=== PATIENT | female | born 1945 | race Hispanic/Latino ===

== ENCOUNTER 2017-10-15 09:22 | Outpatient (CLI) | payer MEDICARE, MEDICAID | END 2017-10-15 09:23 | disposition home or self-care (01) | LOC: BICMAMMO 09:22 | PROVIDERS: ATTEND Family Medicine | DX: Z13.820 Encounter for screening for osteoporosis (principal); M81.0 Age-related osteoporosis without current pathological fracture; M54.2 Cervicalgia; M47.892 Other spondylosis, cervical region; I51.7 Cardiomegaly | CPT/HCPCS: 71046; 72040; 77080 ==

== ENCOUNTER 2022-01-29 04:22 | Emergency (ER) | payer MEDICARE, MEDICAID ==
[2022-01-29] MEDS ORDERED: Ondansetron ODT 4 MG TAB ONE (04:36)
[2022-01-29 05:39] LABS: #Lymphocytes 1.4 thou/uL (1.20-3.40); #Monocytes 0.9 thou/uL (0.11-0.59); #Neutrophils 16.3 thou/uL (1.40-6.50); %Basophils 0.2 % (0.0-1.0); %Lymphocytes 7.5 % (21.0-51.0); %Monocytes 4.7 % (0.0-10.0); %Neutrophils 87.6 % (42.0-75.0); Hemoglobin 12.9 g/dL (12.0-16.0); Mean Corpuscular HGB CONC 33.7 g/dL (32.0-36.0); Mean Platelet Volume 8.2 fL (7.4-10.4); Platelet Count 186 10x3/uL (130-400); RBC Distribution Width 12.7 % (11.5-14.5); Red Blood Cell (RBC) Count 4.31 mill/uL (4.20-5.40); White Blood Cell (WBC) Count 18.6 10x3/uL (4.8-10.8)
[2022-01-29 05:56] LABS: ALT (SGPT) 11 U/L (8-55); AST (SGOT) 18 U/L (5-34); Albumin 4.1 g/dL (3.4-4.8); Alkaline Phosphatase 84 U/L (40-110); Anion Gap 13 mmol/L (10-20); BUN (Urea Nitrogen) 15 mg/dL (9.8-20.1); Calc. Creatinine Clearance 0 mL/min (70-130); Calcium 9.5 mg/dL (7.8-10.44); Carbon Dioxide 22 mmol/L (23-31); Chloride 104 mmol/L (98-107); Estimated GFR 61; Globulin 3.9 g/dL (2.4-3.5); Glucose 188 mg/dL (83-110); Lipase 10 U/L (8-78); Magnesium 1.4 mg/dL (1.6-2.6); Potassium 3.2 mmol/L (3.5-5.1); Sodium 136 mmol/L (136-145)
[2022-01-29] MEDS ORDERED: Magnesium Oxide 400 MG TAB PO SCH (08:00)
[2022-01-29] MEDS ORDERED: Potassium Chloride 20 MEQ TAB ONE (08:40)
== END 2022-01-29 09:19 | disposition home or self-care (01) ==
LOC: ERS 04:22
DX: J18.9 Pneumonia, unspecified organism (principal); I10 Essential (primary) hypertension
CPT/HCPCS: 36415; 71045; 74177; 80053; 83690; 83735; 85025; Q0162

== ENCOUNTER 2022-01-30 12:03 | Inpatient (IN) | payer MEDICARE, MEDICAID ==
[2022-01-30] MEDS ORDERED: cefTRIAXone\\ROCEPHIN 2 GM VIAL ONE (12:32)
[2022-01-30] MEDS ORDERED: Cefepime 2 GM VIAL ONE (12:33)
[2022-01-30 13:08] LABS: #Eosinphils 0.1 thou/uL (0.0-0.7); #Lymphocytes 2.5 thou/uL (1.20-3.40); #Monocytes 0.7 thou/uL (0.11-0.59); #Neutrophils 11.2 thou/uL (1.40-6.50); %Eosinophils 0.6 % (0.0-10.0); %Lymphocytes 17.4 % (21.0-51.0); %Monocytes 4.6 % (0.0-10.0); %Neutrophils 77.4 % (42.0-75.0); Hemoglobin 13.9 g/dL (12.0-16.0); Mean Corpuscular HGB CONC 33.4 g/dL (32.0-36.0); Mean Corpuscular Hemoglobin 30.3 pg (27.0-31.0); Mean Corpuscular Volume 90.7 fl (78.0-98.0); Mean Platelet Volume 8.4 fL (7.4-10.4); Platelet Count 207 10x3/uL (130-400); Red Blood Cell (RBC) Count 4.61 mill/uL (4.20-5.40); White Blood Cell (WBC) Count 14.4 10x3/uL (4.8-10.8)
[2022-01-30] MEDS ORDERED: Vancomycin 1.5 GRAM/300 ML BAG 1.5 GM in Premix Bag 1 BAG IVPB SCH (13:15)
[2022-01-30 13:23] LABS: ALT (SGPT) 8 U/L (8-55); AST (SGOT) 21 U/L (5-34); Albumin 4.1 g/dL (3.4-4.8); Alkaline Phosphatase 85 U/L (40-110); Anion Gap 15 mmol/L (10-20); BUN (Urea Nitrogen) 20 mg/dL (9.8-20.1); Bilirubin, Total 1.4 mg/dL (0.2-1.2); Calc. Creatinine Clearance 0 mL/min (70-130); Calcium 9.7 mg/dL (7.8-10.44); Carbon Dioxide 21 mmol/L (23-31); Estimated GFR 66; Globulin 4.3 g/dL (2.4-3.5); Glucose 67 mg/dL (83-110); Potassium 4.4 mmol/L (3.5-5.1); Protein, Total 8.4 g/dL (5.8-8.1); Sodium 138 mmol/L (136-145)
[2022-01-30 13:33] LABS: Chloride 106 mmol/L (98-107)
[2022-01-30 14:01] LABS: SARS-CoV-2 NAA Rapid Test Not Detected (NotDetected)
[2022-01-30] MEDS ORDERED: HumaLOG 300 UNITS/3 ML VIAL SC PRN (15:11)
[2022-01-30] MEDS ORDERED: Ondansetron PF 4 MG/2 ML Vial IVP PRN (15:11)
[2022-01-30] MEDS ORDERED: Dextrose 50% Abboject 50 ML SYRINGE SLOW IVP PRN (15:11)
[2022-01-30] MEDS ORDERED: Dextrose 5% in Water 1,000 ML IV PRN (15:11)
[2022-01-30] MEDS ORDERED: ANTIBIOTICS IVPB PRN (15:11)
[2022-01-30] MEDS ORDERED: VANCOMYCIN IVPB PRN (15:11)
[2022-01-30 16:25] LABS: Lactic Acid 1.5 mmol/L (0.5-2.2)
[2022-01-30] MEDS: Sodium Chloride 0.9% 1,000 ML IV SCH (17:31)
[2022-01-30 18:48] VITALS: BMI 21.7
[2022-01-30] MEDS: Gabapentin 100 MG CAP PO SCH (20:23)
[2022-01-30] MEDS: HYDROcodone/Acetaminophen 5/325 mg Tablet PO PRN (20:53)
[2022-01-30] MEDS: Acetaminophen 325 MG TAB PO PRN (20:54)
[2022-01-31] MEDS: Ketorolac Tromethamine 30 MG/ML VIAL IVP SCH ×2 (00:27→22:59)
[2022-01-31] MEDS: HYDROcodone/Acetaminophen 5/325 mg Tablet PO PRN ×3 (01:34→10:23)
[2022-01-31] MEDS: Cefepime 1 GM in Sodium Chloride 0.9% 100 ML IVPB SCH ×2 (01:34→14:44)
[2022-01-31] MEDS: Sodium Chloride 0.9% 1,000 ML IV SCH (06:04)
[2022-01-31] MEDS ORDERED: Neomycin-Polymyxin 1 ML AMP ONE (06:19)
[2022-01-31] MEDS ORDERED: Bupivacaine PF 0.5% 30 ML VIAL ONE (06:19)
[2022-01-31] MEDS ORDERED: Betamet Acet/Betamet Na Ph 30 MG/5 ML VIAL ONE (06:19)
[2022-01-31] MEDS ORDERED: Bacitracin Zinc Ointment 30 gm TUBE ONE (06:19)
[2022-01-31] MEDS ORDERED: Ropivacaine 0.5% HCl/PF (150 MG/30 ML VIAL) ONE (07:04)
[2022-01-31] MEDS ORDERED: ePHEDrine 50 MG/ML VIAL ONE (07:35)
[2022-01-31] MEDS ORDERED: PROPOFOL 200 MG/20 ML VIAL ONE (07:35)
[2022-01-31] MEDS ORDERED: Ondansetron PF 4 MG/2 ML Vial ONE (07:35)
[2022-01-31] MEDS ORDERED: Phenylephrine 10 MG/ML VIAL ONE (07:35)
[2022-01-31] MEDS ORDERED: Promethazine HCl 25 MG/ML VIAL IM PRN (08:31)
[2022-01-31] MEDS ORDERED: Promethazine HCl 25 MG/ML VIAL IVPB PRN (08:31)
[2022-01-31] MEDS ORDERED: Ondansetron HCl/PF 4 MG/2 ML Vial IVP PRN (08:31)
[2022-01-31] MEDS ORDERED: FENTANYL 50 MCG/ML 1 ML VIAL ONE (08:36)
[2022-01-31] MEDS ORDERED: FLU VACC QS2022-23(65YR UP)/PF 240 MCG/0.7 ML SYRINGE IM ONE (09:00)
[2022-01-31] MEDS: Aspirin 81 mg Enteric Coated Tablet PO SCH (10:24)
[2022-01-31] MEDS: Losartan 25 MG TAB PO SCH (10:24)
[2022-01-31 11:19] LABS: Anion Gap 13 mmol/L (10-20); BUN (Urea Nitrogen) 14 mg/dL (9.8-20.1); Calc. Creatinine Clearance 57 mL/min (70-130); Calcium 8.8 mg/dL (7.8-10.44); Carbon Dioxide 18 mmol/L (23-31); Chloride 108 mmol/L (98-107); Estimated GFR 84; Glucose 137 mg/dL (83-110); Potassium 3.6 mmol/L (3.5-5.1); Sodium 135 mmol/L (136-145)
[2022-01-31 11:58] LABS: #Lymphocytes 1.6 thou/uL (1.20-3.40); #Monocytes 0.7 thou/uL (0.11-0.59); #Neutrophils 8.2 thou/uL (1.40-6.50); %Basophils 0.3 % (0.0-1.0); %Eosinophils 0.4 % (0.0-10.0); %Lymphocytes 14.7 % (21.0-51.0); %Monocytes 6.5 % (0.0-10.0); Hemoglobin 11.5 g/dL (12.0-16.0); Mean Corpuscular HGB CONC 33.3 g/dL (32.0-36.0); Mean Corpuscular Hemoglobin 31.1 pg (27.0-31.0); Mean Corpuscular Volume 93.5 fl (78.0-98.0); Mean Platelet Volume 7.5 fL (7.4-10.4); Platelet Count 183 10x3/uL (130-400); RBC Distribution Width 12.8 % (11.5-14.5); White Blood Cell (WBC) Count 10.5 10x3/uL (4.8-10.8)
[2022-01-31] MEDS: Vancomycin 1 GM in Premix Bag 1 BAG IVPB SCH (15:42)
[2022-01-31] MEDS: Gabapentin 100 MG CAP PO SCH (20:51)
[2022-02-01] MEDS: Cefepime 1 GM in Sodium Chloride 0.9% 100 ML IVPB SCH ×2 (02:38→16:15)
[2022-02-01] MEDS: HYDROcodone/Acetaminophen 5/325 mg Tablet PO PRN ×4 (05:11→21:07)
[2022-02-01 06:02] LABS: #Eosinphils 0.2 thou/uL (0.0-0.7); #Lymphocytes 1.8 thou/uL (1.20-3.40); #Monocytes 0.6 thou/uL (0.11-0.59); #Neutrophils 6.5 thou/uL (1.40-6.50); %Basophils 0.3 % (0.0-1.0); %Eosinophils 2.5 % (0.0-10.0); %Monocytes 6.2 % (0.0-10.0); %Neutrophils 71.1 % (42.0-75.0); Mean Corpuscular HGB CONC 33.2 g/dL (32.0-36.0); Mean Corpuscular Hemoglobin 30.6 pg (27.0-31.0); Mean Corpuscular Volume 92.1 fl (78.0-98.0); Mean Platelet Volume 7.2 fL (7.4-10.4); Platelet Count 207 10x3/uL (130-400); RBC Distribution Width 12.7 % (11.5-14.5); Red Blood Cell (RBC) Count 3.93 mill/uL (4.20-5.40); White Blood Cell (WBC) Count 9.2 10x3/uL (4.8-10.8)
[2022-02-01 06:24] LABS: Anion Gap 13 mmol/L (10-20); Calc. Creatinine Clearance 57 mL/min (70-130); Calcium 9.1 mg/dL (7.8-10.44); Carbon Dioxide 20 mmol/L (23-31); Chloride 108 mmol/L (98-107); Estimated GFR 84; Glucose 104 mg/dL (83-110); Potassium 3.7 mmol/L (3.5-5.1); Sodium 137 mmol/L (136-145)
[2022-02-01 08:22] LABS: BUN (Urea Nitrogen) 12 mg/dL (9.8-20.1)
[2022-02-01] MEDS: Losartan 25 MG TAB PO SCH (09:12)
[2022-02-01] MEDS: Aspirin 81 mg Enteric Coated Tablet PO SCH (09:12)
[2022-02-01] MEDS: Vancomycin 1 GM in Premix Bag 1 BAG IVPB SCH (16:14)
[2022-02-01] MEDS: Morphine 4 MG/ML VIAL SLOW IVP PRN (16:36)
[2022-02-01] MEDS: cefTRIAXone\\ROCEPHIN 2 GM in Sodium Chloride 0.9% 100 ML IVPB SCH (16:39)
[2022-02-01] MEDS: Gabapentin 100 MG CAP PO SCH (20:49)
[2022-02-01] MEDS: Clindamycin/D5W 600 MG in Premix Bag 1 BAG IVPB SCH (20:51)
[2022-02-02] MEDS: Clindamycin/D5W 600 MG in Premix Bag 1 BAG IVPB SCH ×3 (04:36→21:13)
[2022-02-02] MEDS: HYDROcodone/Acetaminophen 5/325 mg Tablet PO PRN (04:36)
[2022-02-02] MEDS: Morphine 4 MG/ML VIAL SLOW IVP PRN (04:53)
[2022-02-02 06:20] LABS: #Eosinphils 0.3 thou/uL (0.0-0.7); #Lymphocytes 1.7 thou/uL (1.20-3.40); #Monocytes 0.5 thou/uL (0.11-0.59); #Neutrophils 4.5 thou/uL (1.40-6.50); %Basophils 0.3 % (0.0-1.0); %Eosinophils 3.6 % (0.0-10.0); %Lymphocytes 23.8 % (21.0-51.0); %Monocytes 7.6 % (0.0-10.0); %Neutrophils 64.7 % (42.0-75.0); Hemoglobin 11.7 g/dL (12.0-16.0); Mean Corpuscular HGB CONC 34.6 g/dL (32.0-36.0); Mean Corpuscular Volume 92.6 fl (78.0-98.0); Mean Platelet Volume 7.3 fL (7.4-10.4); Platelet Count 197 10x3/uL (130-400); RBC Distribution Width 12.8 % (11.5-14.5); Red Blood Cell (RBC) Count 3.65 mill/uL (4.20-5.40)
[2022-02-02 06:41] LABS: Anion Gap 15 mmol/L (10-20); BUN (Urea Nitrogen) 14 mg/dL (9.8-20.1); Calc. Creatinine Clearance 46 mL/min (70-130); Carbon Dioxide 19 mmol/L (23-31); Chloride 108 mmol/L (98-107); Estimated GFR 65; Glucose 80 mg/dL (83-110); Potassium 3.8 mmol/L (3.5-5.1); Sodium 138 mmol/L (136-145)
[2022-02-02] MEDS: Losartan 25 MG TAB PO SCH (10:31)
[2022-02-02] MEDS: Aspirin 81 mg Enteric Coated Tablet PO SCH (10:31)
[2022-02-02] MEDS ORDERED: Bupivacaine PF 0.5% 30 ML VIAL ONE (14:11)
[2022-02-02] MEDS ORDERED: Bupivacaine 0.25% HCL 30 ML VIAL ONE (14:11)
[2022-02-02] MEDS ORDERED: Fentanyl 250 MCG/5 ML VIAL ONE (14:14)
[2022-02-02] MEDS ORDERED: Ketorolac Tromethamine 30 MG/ML VIAL ONE (14:15)
[2022-02-02] MEDS ORDERED: Dexamethasone 20 MG/5 ML VIAL ONE (14:15)
[2022-02-02] MEDS ORDERED: Ondansetron PF 4 MG/2 ML Vial ONE (14:15)
[2022-02-02] MEDS ORDERED: PROPOFOL 200 MG/20 ML VIAL ONE (14:15)
[2022-02-02] MEDS ORDERED: Neomycin-Polymyxin 1 ML AMP ONE (14:47)
[2022-02-02] MEDS ORDERED: Ondansetron HCl/PF 4 MG/2 ML Vial IVP PRN (15:24)
[2022-02-02] MEDS ORDERED: Promethazine HCl 25 MG/ML VIAL IVPB PRN (15:24)
[2022-02-02] MEDS ORDERED: Promethazine HCl 25 MG/ML VIAL IM PRN (15:24)
[2022-02-02] MEDS ORDERED: HYDROmorphone 2 MG/ML VIAL SLOW IVP PRN (15:24)
[2022-02-02] MEDS ORDERED: Fentanyl 100 MCG/2 ML VIAL ONE (15:58)
[2022-02-02] MEDS: cefTRIAXone\\ROCEPHIN 2 GM in Sodium Chloride 0.9% 100 ML IVPB SCH (17:16)
[2022-02-02] MEDS: Acetaminophen 325 MG TAB PO PRN (21:13)
[2022-02-02] MEDS: Gabapentin 100 MG CAP PO SCH (21:13)
[2022-02-03] MEDS: Clindamycin/D5W 600 MG in Premix Bag 1 BAG IVPB SCH ×3 (05:55→21:27)
[2022-02-03] MEDS: Aspirin 81 mg Enteric Coated Tablet PO SCH (08:25)
[2022-02-03] MEDS: Losartan 25 MG TAB PO SCH (08:25)
[2022-02-03 08:26] LABS: #Lymphocytes 0.9 thou/uL (1.20-3.40); #Monocytes 0.3 thou/uL (0.11-0.59); #Neutrophils 4.3 thou/uL (1.40-6.50); %Eosinophils 0.1 % (0.0-10.0); %Monocytes 4.9 % (0.0-10.0); Hemoglobin 11.6 g/dL (12.0-16.0); Mean Corpuscular HGB CONC 34.7 g/dL (32.0-36.0); Mean Corpuscular Hemoglobin 31.6 pg (27.0-31.0); Mean Platelet Volume 7.2 fL (7.4-10.4); Platelet Count 228 10x3/uL (130-400); RBC Distribution Width 12.7 % (11.5-14.5); Red Blood Cell (RBC) Count 3.68 mill/uL (4.20-5.40); White Blood Cell (WBC) Count 5.5 10x3/uL (4.8-10.8)
[2022-02-03 08:45] LABS: Anion Gap 19 mmol/L (10-20); BUN (Urea Nitrogen) 21 mg/dL (9.8-20.1); Calc. Creatinine Clearance 49 mL/min (70-130); Carbon Dioxide 15 mmol/L (23-31); Chloride 107 mmol/L (98-107); Estimated GFR 69; Glucose 126 mg/dL (83-110); Potassium 3.8 mmol/L (3.5-5.1); Sodium 137 mmol/L (136-145)
[2022-02-03] MEDS ORDERED: guaiFENesin 200 MG TAB PO PRN (15:37)
[2022-02-03] MEDS ORDERED: Amlodipine 5 MG TAB PO SCH (15:45)
[2022-02-03] MEDS: cefTRIAXone\\ROCEPHIN 2 GM in Sodium Chloride 0.9% 100 ML IVPB SCH (16:51)
[2022-02-03] MEDS: Morphine 4 MG/ML VIAL SLOW IVP PRN (19:30)
[2022-02-03] MEDS: HYDROcodone/Acetaminophen 5/325 mg Tablet PO PRN (19:50)
[2022-02-03] MEDS: Gabapentin 100 MG CAP PO SCH (19:50)
[2022-02-03] MEDS: Acetaminophen 325 MG TAB PO PRN (20:02)
[2022-02-04] MEDS: Clindamycin/D5W 600 MG in Premix Bag 1 BAG IVPB SCH ×3 (05:39→23:21)
[2022-02-04 06:34] LABS: Anion Gap 12 mmol/L (10-20); BUN (Urea Nitrogen) 22 mg/dL (9.8-20.1); Calc. Creatinine Clearance 51 mL/min (70-130); Calcium 8.9 mg/dL (7.8-10.44); Carbon Dioxide 21 mmol/L (23-31); Chloride 110 mmol/L (98-107); Estimated GFR 72; Glucose 95 mg/dL (83-110); Potassium 3.3 mmol/L (3.5-5.1); Sodium 140 mmol/L (136-145)
[2022-02-04] MEDS: Aspirin 81 mg Enteric Coated Tablet PO SCH (08:21)
[2022-02-04] MEDS: Losartan 25 MG TAB PO SCH (08:22)
[2022-02-04] MEDS: Amlodipine 5 MG TAB PO SCH (08:22)
[2022-02-04] MEDS: Acetaminophen 325 MG TAB PO PRN (10:32)
[2022-02-04] MEDS ORDERED: Electrolyte Replacement Protocol 1 EACH FS SCH (14:45)
[2022-02-04] MEDS ORDERED: Potassium Chloride 20 MEQ TAB PO SCH (14:45)
[2022-02-04 16:09] LABS: Magnesium 1.4 mg/dL (1.6-2.6)
[2022-02-04] MEDS: Morphine 4 MG/ML VIAL SLOW IVP PRN (16:53)
[2022-02-04] MEDS: cefTRIAXone\\ROCEPHIN 2 GM in Sodium Chloride 0.9% 100 ML IVPB SCH (16:54)
[2022-02-04] MEDS ORDERED: Magnesium Sulfate In Water 4 GM in Premix Bag 1 BAG IVPB SCH (20:00)
[2022-02-04] MEDS: Gabapentin 100 MG CAP PO SCH (20:59)
[2022-02-05 01:22] LABS: SARS-CoV-2 NAA Rapid Test Not Detected (NotDetected)
[2022-02-05 05:47] LABS: Anion Gap 11 mmol/L (10-20); BUN (Urea Nitrogen) 13 mg/dL (9.8-20.1); Calc. Creatinine Clearance 63 mL/min (70-130); Carbon Dioxide 25 mmol/L (23-31); Chloride 107 mmol/L (98-107); Estimated GFR 89; Glucose 111 mg/dL (83-110); Magnesium 2.4 mg/dL (1.6-2.6); Potassium 3.8 mmol/L (3.5-5.1); Sodium 139 mmol/L (136-145)
[2022-02-05] MEDS: Clindamycin/D5W 600 MG in Premix Bag 1 BAG IVPB SCH ×3 (05:54→21:07)
[2022-02-05] MEDS: Losartan 25 MG TAB PO SCH (09:43)
[2022-02-05] MEDS: Amlodipine 5 MG TAB PO SCH (09:43)
[2022-02-05] MEDS: Aspirin 81 mg Enteric Coated Tablet PO SCH (09:44)
[2022-02-05] MEDS ORDERED: Fentanyl 100 MCG/2 ML VIAL ONE (15:53)
[2022-02-05] MEDS ORDERED: Bupivacaine PF 0.5% 30 ML VIAL ONE (15:54)
[2022-02-05] MEDS ORDERED: Bacitracin Zinc Ointment 30 gm TUBE ONE (15:54)
[2022-02-05] MEDS ORDERED: PROPOFOL 200 MG/20 ML VIAL ONE (16:15)
[2022-02-05] MEDS ORDERED: Ondansetron PF 4 MG/2 ML Vial ONE (16:15)
[2022-02-05] MEDS ORDERED: Promethazine HCl 25 MG/ML VIAL IVPB PRN ×2 (16:32→17:57)
[2022-02-05] MEDS ORDERED: PACU-Morphine 4MG/ML VIAL SLOW IVP PRN (16:32)
[2022-02-05] MEDS ORDERED: Promethazine HCl 25 MG/ML VIAL IM PRN ×2 (16:32→17:57)
[2022-02-05] MEDS ORDERED: Ondansetron HCl/PF 4 MG/2 ML Vial IVP PRN (17:57)
[2022-02-05] MEDS ORDERED: Morphine Sulfate 2 MG/ML SYRINGE SLOW IVP PRN (17:57)
[2022-02-05] MEDS: cefTRIAXone\\ROCEPHIN 2 GM in Sodium Chloride 0.9% 100 ML IVPB SCH (19:21)
[2022-02-05] MEDS: HYDROcodone/Acetaminophen 5/325 mg Tablet PO PRN (21:06)
[2022-02-05] MEDS: Gabapentin 100 MG CAP PO SCH (21:07)
[2022-02-06] MEDS: Clindamycin/D5W 600 MG in Premix Bag 1 BAG IVPB SCH ×2 (05:05→13:11)
[2022-02-06 05:48] LABS: Anion Gap 14 mmol/L (10-20); BUN (Urea Nitrogen) 9 mg/dL (9.8-20.1); Calc. Creatinine Clearance 59 mL/min (70-130); Calcium 8.9 mg/dL (7.8-10.44); Carbon Dioxide 22 mmol/L (23-31); Chloride 107 mmol/L (98-107); Estimated GFR 87; Glucose 125 mg/dL (83-110); Potassium 3.5 mmol/L (3.5-5.1); Sodium 139 mmol/L (136-145)
[2022-02-06] MEDS ORDERED: Potassium Chloride 20 MEQ TAB PO SCH (08:00)
[2022-02-06] MEDS: Amlodipine 5 MG TAB PO SCH (08:51)
[2022-02-06] MEDS: Aspirin 81 mg Enteric Coated Tablet PO SCH (08:51)
[2022-02-06] MEDS: Losartan 25 MG TAB PO SCH (08:51)
[2022-02-06 12:51] VITALS: BP 160/77; TEMP 98
== END 2022-02-06 12:49 | DRG 506 ==
LOC: ERS 12:03 → SURG A 13:29
PROVIDERS: ADMIT Internal Medicine; ATTEND Internal Medicine
PROC: 0LB70ZZ Excision of Right Hand Tendon, Open Approach (ICD-10-PCS; 2022-01-31)
PROC: 0R9W0ZZ Drainage of Right Finger Phalangeal Joint, Open Approach (ICD-10-PCS; principal; 2022-02-02)
PROC: 0LB70ZZ Excision of Right Hand Tendon, Open Approach (ICD-10-PCS; 2022-02-02)
PROC: 02HV33Z Insertion of Infusion Device into Superior Vena Cava, Percutaneous Approach (ICD-10-PCS; 2022-02-03)
PROC: B548ZZA Ultrasonography of Superior Vena Cava, Guidance (ICD-10-PCS; 2022-02-03)
PROC: 0LD70ZZ Extraction of Right Hand Tendon, Open Approach (ICD-10-PCS; 2022-02-05)
DX: M65.141 Other infective (teno)synovitis, right hand (principal); J15.3 Pneumonia due to streptococcus, group B; L02.511 Cutaneous abscess of right hand; E87.20 Acidosis, unspecified; I96 Gangrene, not elsewhere classified; R78.81 Bacteremia; I69.954 Hemiplegia and hemiparesis following unspecified cerebrovascular disease affecting left non-dominant side; Z20.822 Contact with and (suspected) exposure to COVID-19; L03.011 Cellulitis of right finger; E11.9 Type 2 diabetes mellitus without complications; I10 Essential (primary) hypertension; F32.A Depression, unspecified; E87.6 Hypokalemia; Z79.82 Long term (current) use of aspirin; Z79.899 Other long term (current) drug therapy; Z79.84 Long term (current) use of oral hypoglycemic drugs; Z99.3 Dependence on wheelchair; I69.920 Aphasia following unspecified cerebrovascular disease
CPT/HCPCS: 36415; 36416; 36569; 71045; 71046; 74177; 80048; 80053; 83605; 83690; 83735; 85025; 85652; 86140; 87040; 87070; 87077; 87149; 87186; 87205; 90471; 90662; 96365; 96366; 96367; C1751; G0008; J0692; J0696; J0702; J1100; J1885; J2270; J2370; J2405; J2704; J2795; J3010; J3370; J3475; J3490; J7050; Q0162; S0020; U0002

== ENCOUNTER 2022-02-08 11:48 | Emergency (ER) | payer MEDICARE, MEDICAID ==
[2022-02-08 12:32] LABS: Actual Bicarbonate (HCO3v) 21 mEq/L (22-28); Base Excess -1.4 mEq/L (-2.0 to +3.0); Calcium, Ionized (venous) 1.19 mmol/L (1.16-1.32); Chloride (VBG) 108 mmol/L (98-106); Hemoglobin (Hb) 13.9 g/dL (11.7-16.1); Potassium (VBG) 3.94 mmol/L (3.70-5.30); Sodium 140.2 mmol/L (133-146); pH (venous) 7.47 (7.32-7.43)
[2022-02-08 12:43] LABS: #Eosinphils 0.2 thou/uL (0.0-0.7); #Lymphocytes 1.5 thou/uL (1.20-3.40); #Monocytes 0.5 thou/uL (0.11-0.59); #Neutrophils 6.5 thou/uL (1.40-6.50); %Basophils 0.1 % (0.0-1.0); %Eosinophils 2.2 % (0.0-10.0); %Lymphocytes 17.7 % (21.0-51.0); %Monocytes 5.5 % (0.0-10.0); %Neutrophils 74.5 % (42.0-75.0); Hemoglobin 13.6 g/dL (12.0-16.0); Mean Corpuscular HGB CONC 35.2 g/dL (32.0-36.0); Mean Corpuscular Hemoglobin 31.6 pg (27.0-31.0); Mean Platelet Volume 7.2 fL (7.4-10.4); Platelet Count 254 10x3/uL (130-400); RBC Distribution Width 13.5 % (11.5-14.5); Red Blood Cell (RBC) Count 4.31 mill/uL (4.20-5.40); White Blood Cell (WBC) Count 8.7 10x3/uL (4.8-10.8)
[2022-02-08 13:03] LABS: ALT (SGPT) 12 U/L (8-55); AST (SGOT) 25 U/L (5-34); Albumin 3.6 g/dL (3.4-4.8); Alkaline Phosphatase 73 U/L (40-110); Anion Gap 17 mmol/L (10-20); BUN (Urea Nitrogen) 16 mg/dL (9.8-20.1); CK (CPK) 90 U/L (29-168); Calc. Creatinine Clearance 0 mL/min (70-130); Calcium 9.4 mg/dL (7.8-10.44); Carbon Dioxide 19 mmol/L (23-31); Chloride 107 mmol/L (98-107); Estimated GFR 88; Globulin 4.1 g/dL (2.4-3.5); Glucose 138 mg/dL (83-110); Potassium 3.9 mmol/L (3.5-5.1); Protein, Total 7.7 g/dL (5.8-8.1); Sodium 139 mmol/L (136-145)
[2022-02-08 13:21] LABS: CKMB 1.1 ng/mL (0-6.6)
[2022-02-08 14:14] LABS: Troponin I 0.013 ng/mL (< 0.028)
== END 2022-02-08 15:25 | disposition home or self-care (01) ==
LOC: ERS 11:48
DX: E87.5 Hyperkalemia (principal); E11.8 Type 2 diabetes mellitus with unspecified complications; I10 Essential (primary) hypertension; Z79.84 Long term (current) use of oral hypoglycemic drugs; Z79.82 Long term (current) use of aspirin; Z79.899 Other long term (current) drug therapy
CPT/HCPCS: 36415; 71045; 80053; 82550; 82553; 82805; 83605; 83735; 84443; 84484; 85025; 86140; 93005

== ENCOUNTER 2022-04-03 08:15 | Inpatient (IN) | payer MEDICARE, MEDICAID ==
[2022-04-03] MEDS ORDERED: Cefepime 2 GM VIAL ONE (09:47)
[2022-04-03] MEDS ORDERED: Boostrix 0.5 ML (Tdap) VIAL (>/=7 yrs of age) ONE (09:47)
[2022-04-03] MEDS ORDERED: Morphine 4 MG/ML VIAL ONE (09:49)
[2022-04-03 09:59] LABS: #Eosinphils 0.1 thou/uL (0.0-0.7); #Lymphocytes 2.2 thou/uL (1.20-3.40); #Monocytes 0.3 thou/uL (0.11-0.59); #Neutrophils 2.8 thou/uL (1.40-6.50); %Basophils 0.2 % (0.0-1.0); %Eosinophils 2.7 % (0.0-10.0); %Lymphocytes 40.3 % (21.0-51.0); %Monocytes 5.6 % (0.0-10.0); %Neutrophils 51.2 % (42.0-75.0); Hemoglobin 12.5 g/dL (12.0-16.0); Mean Corpuscular HGB CONC 34.4 g/dL (32.0-36.0); Mean Corpuscular Hemoglobin 30.6 pg (27.0-31.0); Mean Platelet Volume 8.2 fL (7.4-10.4); Platelet Count 182 10x3/uL (130-400); RBC Distribution Width 12.2 % (11.5-14.5); White Blood Cell (WBC) Count 5.4 10x3/uL (4.8-10.8)
[2022-04-03 10:20] LABS: ALT (SGPT) 8 U/L (8-55); AST (SGOT) 19 U/L (5-34); Alkaline Phosphatase 93 U/L (40-110); Anion Gap 15 mmol/L (10-20); BUN (Urea Nitrogen) 21 mg/dL (9.8-20.1); Bilirubin, Total 0.8 mg/dL (0.2-1.2); Calc. Creatinine Clearance 0 mL/min (70-130); Calcium 9.7 mg/dL (7.8-10.44); Carbon Dioxide 20 mmol/L (23-31); Chloride 110 mmol/L (98-107); Estimated GFR 66; Glucose 115 mg/dL (83-110); Potassium 3.8 mmol/L (3.5-5.1); Sodium 141 mmol/L (136-145)
[2022-04-03] MEDS ORDERED: Vancomycin 1.5 GRAM/300 ML BAG 1.5 GM in Premix Bag 1 BAG IVPB SCH ×2 (10:30→21:00)
[2022-04-03] MEDS ORDERED: HYDROcodone/Acetaminophen 5/325 mg Tablet PO PRN (12:56)
[2022-04-03] MEDS ORDERED: Acetaminophen 325 MG TAB PO PRN (12:56)
[2022-04-03] MEDS ORDERED: HumaLOG 300 UNITS/3 ML VIAL SC PRN (13:09)
[2022-04-03] MEDS ORDERED: Dextrose 50% Abboject 50 ML SYRINGE SLOW IVP PRN (13:09)
[2022-04-03] MEDS ORDERED: Dextrose 5% in Water 1,000 ML IV PRN (13:09)
[2022-04-03] MEDS ORDERED: Iopamidol-370 76% 500 ML 1 ML ONE (13:12)
[2022-04-03 13:33] VITALS: BMI 24.7
[2022-04-03] MEDS ORDERED: Ondansetron PF 4 MG/2 ML Vial IVP PRN (15:39)
[2022-04-03] MEDS: Cefepime 2 GM in Sodium Chloride 0.9% 100 ML IVPB SCH (20:39)
[2022-04-03] MEDS: Gabapentin 300 MG CAP PO SCH (20:40)
[2022-04-03] MEDS: Mirtazapine 15 MG TAB PO SCH (20:41)
[2022-04-04 07:36] LABS: #Eosinphils 0.2 thou/uL (0.0-0.7); #Lymphocytes 1.8 thou/uL (1.20-3.40); #Monocytes 0.3 thou/uL (0.11-0.59); #Neutrophils 3.7 thou/uL (1.40-6.50); %Basophils 0.6 % (0.0-1.0); %Eosinophils 2.9 % (0.0-10.0); %Lymphocytes 29.5 % (21.0-51.0); %Monocytes 5.1 % (0.0-10.0); Hemoglobin 11.6 g/dL (12.0-16.0); Mean Corpuscular HGB CONC 34.6 g/dL (32.0-36.0); Mean Corpuscular Hemoglobin 30.8 pg (27.0-31.0); Mean Corpuscular Volume 89.1 fl (78.0-98.0); Mean Platelet Volume 8.4 fL (7.4-10.4); Platelet Count 174 10x3/uL (130-400); RBC Distribution Width 12.3 % (11.5-14.5); Red Blood Cell (RBC) Count 3.77 mill/uL (4.20-5.40)
[2022-04-04 08:02] LABS: Anion Gap 12 mmol/L (10-20); BUN (Urea Nitrogen) 16 mg/dL (9.8-20.1); Calc. Creatinine Clearance 53 mL/min (70-130); Calcium 9.2 mg/dL (7.8-10.44); Carbon Dioxide 22 mmol/L (23-31); Chloride 110 mmol/L (98-107); Estimated GFR 75; Glucose 108 mg/dL (83-110); Potassium 4.1 mmol/L (3.5-5.1); Sodium 140 mmol/L (136-145)
[2022-04-04 08:09] LABS: Hemoglobin A1c 5.8 % (4.0-6.0)
[2022-04-04] MEDS: Aspirin 81 mg Enteric Coated Tablet PO SCH (08:23)
[2022-04-04] MEDS: Cefepime 2 GM in Sodium Chloride 0.9% 100 ML IVPB SCH (08:23)
[2022-04-04] MEDS: Losartan 25 MG TAB PO SCH (08:24)
[2022-04-04] MEDS: Amlodipine 5 MG TAB PO SCH (08:24)
[2022-04-04] MEDS ORDERED: FLU VACC QS2022-23(65YR UP)/PF 240 MCG/0.7 ML SYRINGE IM ONE (09:00)
[2022-04-04] MEDS: Vancomycin 1 GM in Premix Bag 1 BAG IVPB SCH (11:58)
[2022-04-04] MEDS: Gabapentin 300 MG CAP PO SCH (20:19)
[2022-04-04] MEDS: Mirtazapine 15 MG TAB PO SCH (20:19)
[2022-04-04] MEDS: Cefepime 1 GM in Sodium Chloride 0.9% 100 ML IVPB SCH (20:19)
[2022-04-05 07:17] LABS: #Eosinphils 0.2 thou/uL (0.0-0.7); #Monocytes 0.3 thou/uL (0.11-0.59); %Basophils 0.4 % (0.0-1.0); %Eosinophils 4.1 % (0.0-10.0); %Lymphocytes 35.5 % (21.0-51.0); %Monocytes 5.8 % (0.0-10.0); %Neutrophils 54.2 % (42.0-75.0); Hemoglobin 12.2 g/dL (12.0-16.0); Mean Corpuscular HGB CONC 34.3 g/dL (32.0-36.0); Mean Corpuscular Hemoglobin 30.3 pg (27.0-31.0); Mean Corpuscular Volume 88.2 fl (78.0-98.0); Mean Platelet Volume 8.4 fL (7.4-10.4); Platelet Count 161 10x3/uL (130-400); RBC Distribution Width 12.1 % (11.5-14.5); Red Blood Cell (RBC) Count 4.02 mill/uL (4.20-5.40); White Blood Cell (WBC) Count 5.6 10x3/uL (4.8-10.8)
[2022-04-05 07:43] LABS: Anion Gap 13 mmol/L (10-20); BUN (Urea Nitrogen) 15 mg/dL (9.8-20.1); CRP (Inflammatory) 1.37 mg/dL (= or < 0.5); Calc. Creatinine Clearance 59 mL/min (70-130); Calcium 9.5 mg/dL (7.8-10.44); Carbon Dioxide 20 mmol/L (23-31); Chloride 109 mmol/L (98-107); Estimated GFR 87; Glucose 99 mg/dL (83-110); Potassium 3.6 mmol/L (3.5-5.1); Sodium 138 mmol/L (136-145)
[2022-04-05] MEDS: Aspirin 81 mg Enteric Coated Tablet PO SCH (08:18)
[2022-04-05] MEDS: Amlodipine 5 MG TAB PO SCH (08:18)
[2022-04-05] MEDS: Cefepime 1 GM in Sodium Chloride 0.9% 100 ML IVPB SCH ×2 (08:19→20:02)
[2022-04-05] MEDS: Losartan 25 MG TAB PO SCH (08:25)
[2022-04-05 10:42] LABS: Vancomycin, Trough 13.6 ug/mL
[2022-04-05] MEDS: Vancomycin 1 GM in Premix Bag 1 BAG IVPB SCH (11:15)
[2022-04-05] MEDS: Mirtazapine 15 MG TAB PO SCH (20:02)
[2022-04-05] MEDS: Gabapentin 300 MG CAP PO SCH (20:02)
[2022-04-06 07:59] LABS: Anion Gap 14 mmol/L (10-20); BUN (Urea Nitrogen) 15 mg/dL (9.8-20.1); Calc. Creatinine Clearance 57 mL/min (70-130); Calcium 9.5 mg/dL (7.8-10.44); Carbon Dioxide 19 mmol/L (23-31); Chloride 111 mmol/L (98-107); Estimated GFR 83; Glucose 97 mg/dL (83-110); Potassium 3.6 mmol/L (3.5-5.1); Sodium 140 mmol/L (136-145)
[2022-04-06] MEDS: Losartan 25 MG TAB PO SCH (09:03)
[2022-04-06] MEDS: Amlodipine 5 MG TAB PO SCH (09:03)
[2022-04-06] MEDS: Cefepime 1 GM in Sodium Chloride 0.9% 100 ML IVPB SCH ×2 (09:04→20:08)
[2022-04-06] MEDS: Aspirin 81 mg Enteric Coated Tablet PO SCH (09:04)
[2022-04-06] MEDS: Vancomycin 1 GM in Premix Bag 1 BAG IVPB SCH (11:50)
[2022-04-06] MEDS: Mirtazapine 15 MG TAB PO SCH (20:07)
[2022-04-06] MEDS: Gabapentin 300 MG CAP PO SCH (20:07)
[2022-04-07 04:57] VITALS: TEMP 98.1
[2022-04-07] MEDS ORDERED: metFORMIN 500 MG TAB PO SCH (09:00)
[2022-04-07] MEDS: Losartan 25 MG TAB PO SCH (09:07)
[2022-04-07] MEDS: Amlodipine 5 MG TAB PO SCH (09:08)
[2022-04-07] MEDS: Cefepime 1 GM in Sodium Chloride 0.9% 100 ML IVPB SCH (09:08)
[2022-04-07] MEDS: Aspirin 81 mg Enteric Coated Tablet PO SCH (09:08)
[2022-04-07 09:16] VITALS: BP 121/55
[2022-04-07] MEDS: Vancomycin 1 GM in Premix Bag 1 BAG IVPB SCH (10:53)
[2022-04-07 13:11] LABS: Vancomycin, Trough 19.8 ug/mL
== END 2022-04-07 11:04 | disposition home health service (06) | DRG 603 ==
LOC: ERS 08:15 → T4-B 13:14
PROVIDERS: ADMIT Family Medicine; ATTEND Family Medicine
DX: L03.115 Cellulitis of right lower limb (principal); L97.819 Non-pressure chronic ulcer of other part of right lower leg with unspecified severity; B95.7 Other staphylococcus as the cause of diseases classified elsewhere; E11.51 Type 2 diabetes mellitus with diabetic peripheral angiopathy without gangrene; I10 Essential (primary) hypertension; Z79.899 Other long term (current) drug therapy; Z79.84 Long term (current) use of oral hypoglycemic drugs; Z86.73 Personal history of transient ischemic attack (TIA), and cerebral infarction without residual deficits; Z90.49 Acquired absence of other specified parts of digestive tract; Z79.82 Long term (current) use of aspirin
CPT/HCPCS: 36415; 36416; 80048; 80053; 80202; 83036; 83605; 84145; 84443; 85025; 86140; 87040; 87070; 87077; 87186; 87205; 90471; 90715; 93923; 96365; 96366; 96367; 96375; 97139; J0692; J1650; J2270; J3370; J3370-JW; J3490; Q9967

== ENCOUNTER 2023-09-07 12:16 | Emergency (ER) | payer MEDICARE, MEDICAID ==
[2023-09-07 14:11] LABS: #Basophils 0.04 10x3/uL (0.0-0.2); %Basophils 0.6 % (0.0-1.0); %Eosinophils 2.8 % (0.0-10.0); %Lymphocytes 25.7 % (21.0-51.0); %Monocytes 4.9 % (0.0-10.0); %Neutrophils 65.7 % (42.0-75.0); Hematocrit 34.5 % (36.0-47.0); Hemoglobin 11.7 g/dL (12.0-16.0); Mean Corpuscular HGB CONC 33.9 g/dL (32.0-36.0); Mean Corpuscular Hemoglobin 30.4 pg (27.0-31.0); Mean Corpuscular Volume 89.6 fL (78.0-98.0); Mean Platelet Volume 10.1 fL (7.4-10.4); Platelet Count 246 10x3/uL (130-400); Red Blood Cell (RBC) Count 3.85 mill/uL (4.20-5.40)
[2023-09-07 14:28] LABS: ALT (SGPT) 10 U/L (8-55); AST (SGOT) 19 U/L (5-34); Albumin 3.7 g/dL (3.4-4.8); Alkaline Phosphatase 102 U/L (40-110); Anion Gap 13 mmol/L (10-20); BUN (Urea Nitrogen) 24 mg/dL (9.8-20.1); Calc. Creatinine Clearance 0 mL/min (70-130); Calcium 9.7 mg/dL (7.8-10.44); Carbon Dioxide 19 mmol/L (23-31); Chloride 114 mmol/L (98-107); Estimated GFR 71; Globulin 3.8 g/dL (2.4-3.5); Glucose 96 mg/dL (83-110); Potassium 3.5 mmol/L (3.5-5.1); Protein, Total 7.5 g/dL (5.8-8.1); Sodium 142 mmol/L (136-145)
[2023-09-07] MEDS ORDERED: Morphine 2 MG/ML VIAL ONE (14:42)
[2023-09-07] MEDS ORDERED: Ondansetron PF 4 MG/2 ML Vial ONE (14:42)
== END 2023-09-07 17:25 | disposition home or self-care (01) ==
LOC: ERS 12:16
DX: E11.622 Type 2 diabetes mellitus with other skin ulcer (principal); L97.228 Non-pressure chronic ulcer of left calf with other specified severity; L97.218 Non-pressure chronic ulcer of right calf with other specified severity; R11.2 Nausea with vomiting, unspecified; I10 Essential (primary) hypertension; Z86.73 Personal history of transient ischemic attack (TIA), and cerebral infarction without residual deficits; Z75.8 Other problems related to medical facilities and other health care
CPT/HCPCS: 80053; 83605; 85025; 87040; 93005; J2272; J2405; 36415; 96361; 96374; 96375